=== PATIENT | male | born 1990 | race American Indian/Alaskan Native ===

== ENCOUNTER 2019-10-03 17:48 | Emergency (ER) | payer SELFPAY ==
--- NOTE | 2019-10-03 19:52 | Emergency Department Report ---
Blank Doc - Documentation Documentation: 29-year-old male that presents with URI symptoms. This initial assessment/diagnostic orders/clinical plan/treatment(s) is/are subject to change based on patient's health status, clinical progression and re- assessment by fellow clinical providers in the ED. Further treatment and workup at subsequent clinical providers discretion. Patient/guardians urged not to elope from the ED as their condition may be serious if not clinically assessed and managed. Initial orders include: 1- Patient sent to [facility] for further evaluation and treatment 2- CXR
--- NOTE | 2019-10-03 20:47 | XRay Report ---
CHEST 1 VIEW INDICATION / CLINICAL INFORMATION: cough. COMPARISON: None available. FINDINGS: SUPPORT DEVICES: None. HEART / MEDIASTINUM: No significant abnormality. LUNGS / PLEURA: No significant pulmonary or pleural abnormality. No pneumothorax. ADDITIONAL FINDINGS: No significant additional findings. IMPRESSION: No significant abnormality. Signer Name: Osvaldo Galarza MD FACR Signed: 10/03/2019 8:42 PM Workstation Name: [email or web address]
[2019-10-03] MEDS ORDERED: traMADol 50 MG TAB PO ONE (22:52)
[2019-10-03] MEDS ORDERED: valACYclovir 500 MG TAB PO ONE (23:00)
[2019-10-03 23:35] VITALS: BP 97/56
--- NOTE | 2019-10-03 23:52 | Emergency Department Report ---
ED General Adult HPI - General Chief complaint: Upper Respiratory Infection Stated complaint: HEADACHE/BODY PAIN Time Seen by Provider: 10/03/19 19:52 Source: patient Mode of arrival: Ambulatory Limitations: No Limitations - History of Present Illness Initial comments: Mr. Hall she presented for follow-up to return 3 weeks intermittent , however quickly involved rash red ulcers yellow center clear drainage consistent with age history. Patient does have clear rhinorrhea consistent with URI . There is no acute distress at this time patient will follow with the health department for HSV screening . I will evaluate and treat for URI. URI symptoms include sinus and head pain, clear yellow drainage, . Onset/Timin -: week(s) Location: pelvis Severity scale (0 -10): 10 Quality: burning Consistency: constant Improves with: none Worsens with: none Associated Symptoms: denies: chest pain, cough, fever/chills Treatments Prior to Arrival: none - Related Data Previous Rx's Medication Instructions Recorded Last Taken Type Ibuprofen [Motrin 800 MG tab] 800 mg PO Q8HR PRN #30 tablet 10/04/19 Unknown Rx Valacyclovir HCl [Valtrex] 1,000 mg PO BID #20 tablet 10/04/19 Unknown Rx Allergies Allergy/AdvReac Type Severity Reaction Status Date / Time No Known Allergies Allergy Unverified 10/03/19 19:57 ED Review of Systems ROS: Stated complaint: HEADACHE/BODY PAIN Other details as noted in HPI Constitutional: denies: chills, fever Eyes: denies: eye pain, eye discharge, vision change ENT: ear pain, throat pain, congestion. denies: dental pain, hearing loss, epistaxis Respiratory: cough. denies: shortness of breath, wheezing Cardiovascular: denies: chest pain, palpitations Endocrine: no symptoms reported Gastrointestinal: denies: abdominal pain, nausea, diarrhea Genitourinary: denies: urgency, dysuria, frequency, hematuria, discharge, testicular pain, testicular mass, other (rash ) Musculoskeletal: denies: back pain, joint swelling, arthralgia Skin: rash (groin) Neurological: headache. denies: weakness, numbness, paresthesias, confusion, vertigo Psychiatric: denies: anxiety, depression Hematological/Lymphatic: denies: easy bleeding, easy bruising ED Past Medical Hx - Past Medical History Previous Medical History?: No - Surgical History Past Surgical History?: No - Social History Smoking Status: Never Smoker Substance Use Type: None - Medications Home Medications: Home Medications Medication Instructions Recorded Confirmed Last Taken Type Ibuprofen [Motrin 800 MG tab] 800 mg PO Q8HR PRN #30 tablet 10/04/19 Unknown Rx Valacyclovir HCl [Valtrex] 1,000 mg PO BID #20 tablet 10/04/19 Unknown Rx ED Physical Exam - General Limitations: No Limitations General appearance: alert, in no apparent distress - Head Head exam: Present: atraumatic, normocephalic - Eye Eye exam: Present: normal appearance, PERRL, EOMI Pupils: Present: normal accommodation - ENT ENT exam: Present: mucous membranes moist, TM's normal bilaterally, normal external ear exam - Expanded ENT Exam Expanded Ear exam: Present: normal external inspection, other (turbinates ) TM/Canal exam: Canal Tenderness: Right TM, Left TM Mouth exam: Present: normal external inspection Throat exam: Positive: tonsillar erythema, tonsillomegaly, tonsillar exudate. Negative: R peritonsillar mass, L peritonsillar mass, other (uvula midline mild white exudate no throat swelling ) - Neck Neck exam: Present: normal inspection, full ROM, lymphadenopathy. Absent: tenderness, meningismus, thyromegaly - Respiratory Respiratory exam: Present: normal lung sounds bilaterally. Absent: respiratory distress, wheezes, stridor, chest wall tenderness - Cardiovascular Cardiovascular Exam: Present: regular rate, normal rhythm, normal heart sounds. Absent: systolic murmur, diastolic murmur, rubs, gallop - GI/Abdominal GI/Abdominal exam: Present: soft, normal bowel sounds. Absent: distended, tenderness, bruit, hernia - Rectal Rectal exam: Present: deferred - Extremities Exam Extremities exam: Present: normal inspection, full ROM. Absent: tenderness - Back Exam Back exam: Present: normal inspection, full ROM. Absent: tenderness, CVA tenderness (R), CVA tenderness (L), rash noted - Neurological Exam Neurological exam: Present: alert, oriented X3, CN II-XII intact, normal gait, reflexes normal. Absent: abnormal gait, motor sensory deficit - Psychiatric Psychiatric exam: Present: normal affect, normal mood - Skin Skin exam: Present: warm, dry, intact, normal color. Absent: rash ED Course Vital Signs 10/03/19 10/03/19 19:55 23:34 Temperature 98 F 98.2 F Pulse Rate 69 63 Respiratory 18 16 Rate Blood Pressure 112/64 Blood Pressure 97/56 [Left] O2 Sat by Pulse 100 100 Oximetry ED Medical Decision Making - Radiology Data Radiology results: report reviewed, image reviewed Ordering Physician: FOX BRISCOE NP Date of Service: 10/03/19 Procedure(s): XR chest routine 2V Accession Number(s): [id number] cc: FOX BRISCOE NP Fluoro Time In Minutes: CHEST 1 VIEW INDICATION / CLINICAL INFORMATION: cough. COMPARISON: None available. FINDINGS: SUPPORT DEVICES: None. HEART / MEDIASTINUM: No significant abnormality. LUNGS / PLEURA: No significant pulmonary or pleural abnormality. No pneumothorax. ADDITION - Medical Decision Making There is no penile discharge , no other satillite lesions. plan: valtrax and ibuprofen. pt will follow up with health department for h Critical care attestation.: If time is entered above; I have spent that time in minutes in the direct care of this critically ill patient, excluding procedure time. 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
== END 2019-10-04 00:15 ==
LOC: ED 17:48
DX: A60.02 Herpesviral infection of other male genital organs (principal); Z79.899 Other long term (current) drug therapy
CPT/HCPCS: 71046